=== PATIENT | female | born 1955 | race Caucasian/White ===

== ENCOUNTER 2017-04-02 18:12 | Emergency (ER) | payer OTHER ==
[~2017-04-02] VITALS: Ht 175.3 cm; Wt 68.0 kg
[~2017-04-02 18:12] MED LIST: CALTRATE 600 +1 TAB PO; CYMBALTA30 MG PO; ENABLEX15 MG PO; FIBER CHOICE1 CTB PO; FOLIC ACID800 MCG PO; INSULIN REGULAR SC; MIRALAX(PO17 GM/1 PA PO; Novolog100 U/ML SC; ONE DAILY1 TAB PO; OXYBUTYNIN CHLO10 MG PO; SYNTHROID 0.0.075 MG PO; TRAMADOL50 M1 PO; [UNRECOGNIZED DRUG - OTHER] SC
--- NOTE | 2017-04-02 18:29 | Emergency Room Report ---
History of Present Illness Time Seen by [id number] Presenting Problem in Triage Pt arrived:Wheelchair Presenting Problem:C/O LOWER L SIDED BACK PAIN THAT DESCRIBES DISCOMFORT. PT REPORTS WITH MOVEMENT PAIN WORSENS AND "FEELS LIKE A PINCH". 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 N Clinical Suspician of Infection? N Mental Status: 1 - Regular (Normal Baseline) Sepsis Risk:Low Sepsis Risk Have you (or family members/close friends) recently traveled outside the [place]? N If Yes, where/when: Have you had exposure to infectious disease within the past month? N TB? Other? Specify: Comment The patient claims of low back pain. It is in the LEFT lower back around the sacroiliac joint. Present for 2 days, starting is an ache but becoming more severe last night. She had trouble sleeping all night. She spent most of today in a recliner. Her pain was not so bad in the recliner but when she tried to get up and move the pain became severe making her feel like she was going to pass out. She says when she gets in a certain position with her back the pain becomes much more severe and feels like a severe "pinch". She took a couple of doses of Tylenol No. 3 given to her by her significant other today that did not seem to help much. She vomited on the way here, he thought it was related to the codeine. She has no numbness of the lower extremities, no bowel or bladder symptoms,, no abdominal pain. She has a prior history of the same type of low back pain on the RIGHT side for the past couple of years. She had an MRI which showed "some inflammation". She was treated with oral steroids, epidural steroid injections, none of which seemed to help. She says this is the same type of pain, just on the opposite side. She has been seen by Dr. Smith, orthopedics, couple of years ago, who sent her to pain management. The pain management physician performed the epidural injections , but she stopped these because they were not helping. The patient is diabetic. Blood sugar at 1:30 PM today was 190. She has used her usual diabetes regimen today. ALLERGIES Coded Allergies: Penicillins (Intermediate, I-HIVES 01/21/16) Home Medications Reported Medications Levothyroxine Sodium (Synthroid 0.075MG) 0.075 MG PO DAILY Oxybutynin Chloride (Oxybutynin Chloride ER) 10 MG PO DAILY INSULIN ASPART (Novolog) (Unknown Dose) SC PUMP POLYETHYLENE GLYCOL (Miralax) 17 GM PO DAILY PRN PRN CONSTIPATION DULOXETINE HCL (Cymbalta 30MG) 30 MG PO DAILY CALCIUM CARBONATE/VITAMIN D3 (Caltrate 600 + D Tablet) 1 TAB PO MULTIVITAMIN (One Daily) 1 TAB PO Folic Acid 800 MCG PO (Aly Antonio MD) History Medical History General CAD? No Angina: No HI: No Hypertension? No Hyperlipidemia? No CHF? No DVT? No PE? No COPD? No Asthma? No Anemia? No GERD? No Gastric ulcers? No GI Bleed? No Hernia? No Thyroid Problems? Yes Hypothyroidism? Yes CVA? No Seizures? No Diabetes? Yes Insulin Dependent: Yes Insulin Pump: Yes Home FSBS? Yes Renal Insuffiency? Yes End Stage Renal Disease? No UTI? No Stones? No BPH? No GB Disease: No Nephritic Syndrome? No Asplenia? No Hepatitis? No Sickle Cell Disease? No Arthritis? No Migraines? No Cataracts? No Glaucoma? No MRSA? No HIV? No TB? No Anxiety? No Depression? No Cancer? No More? 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 Findings of prominent facet hypertrophy at L4-5, but only borderline stenosis. Mild facet hypertrophy at L5-S1. No significant disc pathology. (Aly Antonio MD) Social History Drugs none (Candido Awan MD) Review of Systems All Other Systems Reviewed and Negative Constitutional denies fever Respiratory denies cough, denies shortness of breath Cardiovascular denies chest pain Gastrointestinal denies abdominal pain, nausea, vomiting Genitourinary denies: dysuria, frequency, hematuria. Musculoskeletal back pain Psychiatric/Neurological denies numbness, denies weakness (Aly Antonio MD) Skin denies rash (Lv ROY,Candido Espino) Physical Exam Vital Signs Vital Signs Date Time Temp Pulse Resp B/P Pulse O2 O2 Flow FiO2 Ox Delivery Rate 04/02 2105 98.2 90 20 140/79 97 04/02 2030 85 20 135/84 97 04/02 1943 86 20 142/80 98 04/02 1920 20 04/02 1920 20 04/02 1904 87 18 147/89 98 04/02 1815 98.2 89 18 153/92 100 General Appearance mild distress, appears uncomfortable Eye Exam - bilateral eye normal exam, bilateral eye PERRL, bilateral eye EOMI Ear, Nose, Throat hearing grossly normal, normal ENT inspection Neck normal inspection, non-tender, supple, full range of motion Respiratory Status Yes: trachea midline, chest symmetrical, non tender chest. No: respiratory distress. Lung Sounds bilateral: normal breath sounds, lungs clear. Cardiovascular normal exam, regular rate/rhythm, no peripheral edema, no gallop, no JVD, no murmur, no rub, normal peripheral pulses Peripheral Pulses Pulses normal Yes Gastrointestinal normal bowel sounds, normal exam, non tender, soft, no organomegaly, no pulsatile mass Back normal inspection, no CVA tenderness, no vertebral tenderness Extremities non-tender, normal range of motion, normal inspection Neurologic alert, normal exam, no motor/sensory deficits, oriented x 3 Mental status normal mood/affect Skin intact, normal color, warm/dry (Aly Antonio MD) Medical Decision Making LABS/Meds/Orders Pt receiving controlled substance in ED? Yes Remi was queried for this patient? No Reason not queried - unable to access Results/Orders Laboratory Tests 04/02/172034: Hepatitis A Ab Total Cancelled, Hep Bs Antigen Cancelled, Hep Bs Antibody Cancelled, Hep B Core Total Ab Cancelled, Hepatitis C Antibody Cancelled 04/02/171920: Urine Color YELLOW, Urine Appearance SL CLOUDY, Urine pH 8.0, Ur Specific [place] 1.010, Urine Protein NEGATIVE, Urine Ketones 2+ H, Urine Blood NEGATIVE , Urine Nitrate NEGATIVE, Urine Bilirubin NEGATIVE, Urine Urobilinogen 0.2, Ur Leukocyte Esterase NEGATIVE, Urine WBC OCC, Amorphous Sediment 3+, Urine Glucose 1+ H 04/02/171854: Sodium 134 L, Potassium 4.5, Chloride 100, Carbon Dioxide 27, BUN 20 H, Creatinine 1.2 H, Estimated Creat Clear 54, Estimated GFR (MDRD) 46 L, Glucose 243 H, Calcium 9.8, Total Bilirubin 0.6, AST 377 *H, ALT 266 H, Alkaline Phosphatase 162 H, Total Protein 7.0, Albumin 3.9, Globulin 3.1, Albumin/ Globulin Ratio 1.3, WBC 8.4, RBC 4.30, Hgb 12.7, Hct 38.8, MCV 90.3, RDW 12.7, Plt Count 243, MPV 6.9 L, Gran % 76.1, Gran # 6.4, Lymphocytes % 16.6, Monocytes % 5.8, Eosinophils % 1.1, Basophils % 0.4, Lymphocytes # 1.4, Monocytes # 0.5, Eosinophils # 0.1, Basophils # 0.0, PUBS MCHC 32.7, MCH 29.5, Hepatitis A IgM Ab Pending, Hep Bs Antigen Pending, Hep B Core IgM Ab Pending, Hepatitis C Antibody Pending Current Medication Orders Sig/Enmanuel Start time Last Medication Dose Route Stop Time Status Admin Promethazine HCl 0 .STK-MED ONE 04/02 1948 DC .ROUTE Sodium Chloride 25 ML .STK-MED ONE 04/02 1947 DC IV Promethazine HCl 6.25 MG ONCE ONE 04/02 1945 DC 04/02 IV 04/02 1946 1950 Sodium Chloride 25 ML ONCE ONE 04/02 1945 DC 04/02 IV 04/02 Ketorolac 0 .STK-MED ONE 04/02 1918 DC Tromethamine .ROUTE Morphine Sulfate 0 .STK-MED ONE 04/02 1917 DC .ROUTE Ondansetron HCl 0 .STK-MED ONE 04/02 1859 DC .ROUTE Ketorolac 30 MG ONCE ONE 04/02 1845 DC 04/02 Tromethamine IV 04/02 1846 192 Morphine Sulfate 4 MG ONCE ONE 04/02 1845 DC 04/02 IV 04/02 184 192 Ondansetron HCl 4 MG ONCE ONE 04/02 184 DC 04/02 IV 04/02 184 1900 Sodium Chloride 10 ML PRN PRN 04/02 1845 AC IV 04/03 1842 Orders Procedure Date/time Status DIET-NOTHING BY MOUTH 04/[address] ABD/PELVIS REQ 04/02 2011 Complete CBC WITH AUTO DIFF 04/02 1928 Complete CHEM 12 PROFILE 04/02 1928 Complete HEPATITIS B PROFILE 04/02 185 Active IV SALINE LOCK 04/02 1843 Active URINALYSIS/COMPLETE 04/02 1843 Complete XRAY/CT/US XRAY/CT/US XRAY L-spine Comment Interpreted by Aly Antonio MD. Negative for fracture, dislocation, or subluxation. Also, no suspicious calcifications seen along the courses of the ureters to suggest ureterolithiasis. Progress - 7:40 PM: Recheck patient. Pain is improved but not resolved. She requests more medication for nausea. 8:00 PM: Reviewed labs, her enzymes elevated, this is new compared to previous labs. I spoke with the patient, she says she has not been told in the past that enzymes were elevated either. CT scan abdomen ordered. She has had prior cholecystectomy. Her nausea is improved. She just checked her blood sugar on her insulin pump and it was 260, she gave herself a corrective dose of insulin. At shift change, I have discussed the patient with Dr. Awan, who will assume care of the patient at this time. I have discussed all clinical information including history, physical and diagnostic study results. Preliminary diagnoses based on information available at this point have been recorded by me. Controlled substance administration and critical care statement are also preliminary, as of the time of handoff. (Aly Antonio MD) Departure Departure Clinical Impression Primary Impression: Low back pain Qualifiers: Chronicity: acute Back pain laterality: left Sciatica presence: without sciatica Qualified Code: M54.5 - Low back pain Secondary Impressions: Elevated liver enzymes Condition STABLE ED Critical Care Critical Care No (Aly Antonio MD) Departure Time of Disposition 2137 Disposition DC Home or Self Care(routine) Patient Instructions DI for Low Back Pain Additional Instructions fluids and see pcp for follow up Discharge Counseling Counseled pt/family regarding diagnosis, test results, medications/RX, follow up needs Prescriptions Current Visit Scripts HYDROCODONE/ACETAMINOPHEN (Jasper 5-325 Tablet) 1 TAB PO Q6HP PRN pain #12 TAB ED Critical Care Critical Care No (Candido Awan MD) at 2012 at 2141
--- OUTSIDE RECORDS SUMMARY | 2017-04-02 18:37 | External Medical Summary Rpt ---
Author Author [employer] Organization [employer] Address Unknown Phone Unavailable Purpose Continuity of Care Document - through 2016
--- OUTSIDE RECORDS SUMMARY | 2017-04-02 18:37 | External Medical Summary Rpt ---
Author Author JOHANA Whittington, [employer] Organization [employer] Address Unknown Phone Unavailable
--- OUTSIDE RECORDS SUMMARY | 2017-04-02 18:37 | External Medical Summary Rpt ---
Author Author , Organization [employer] Address Unknown Phone Unavailable Purpose Continuity of Care Document - through 2016
--- OUTSIDE RECORDS SUMMARY | 2017-04-02 18:37 | External Medical Summary Rpt ---
Author Author JOHANA Whittington, [employer] Organization [employer] Address Unknown Phone Unavailable
--- OUTSIDE RECORDS SUMMARY | 2017-04-02 18:37 | External Medical Summary Rpt ---
Demographics Preferred Language Azeri Marital Status Unknown Zoroastrianism Affiliation Unknown Race Unknown Ethnic Group Unknown Author Author , Organization [employer] Address Unknown Phone Unavailable Purpose Continuity of Care Document - through 2016 Immunization No patient found.
--- OUTSIDE RECORDS SUMMARY | 2017-04-02 18:37 | External Medical Summary Rpt ---
Demographics Preferred Language Portuguese Marital Status Unknown Sikhism Affiliation Unknown Race Unknown Ethnic Group Unknown Author Author , Organization [employer] Address Unknown Phone Unavailable Purpose Continuity of Care Document - through 2016 Immunization No patient found.
[2017-04-02 19:26] LABS: URINE BILIRUBIN - DIPSTICK NEGATIVE (NEG); URINE BLOOD NEGATIVE (NEG)
[2017-04-02 19:33] LABS: HEMOGLOBIN 12.7 g/dL (12.2-16.2); LYMPH # 1.4 K/mm3 (0.7-4.5); LYMPH % 16.6 % (10-50.0)
--- NOTE | 2017-04-02 20:01 | RADIOLOGY REPORT PS360 ---
LUMBAR SPINE 5 VIEWS COMPARISON: MRI scan lumbar spine 06/14/2016 HISTORY: Back pain TECHNIQUE: AP lateral and oblique views and spot view lumbosacral junction FINDINGS: There is mild levoscoliotic curvature between T11 and L5. All lumbar vertebrae appear intact and disc spaces are well maintained throughout. There is no pars defect. The SI joints are normal. There are minor hypertrophic facet changes at the L4-5 level. IMPRESSION: Mild levoscoliotic curvature as noted minor facet changes L4-5 which were seen on the previous MRI study
--- NOTE | 2017-04-02 21:09 | RADIOLOGY REPORT PS360 ---
CT ABD PELVIS W/O CONTRAST COMPARISON: None HISTORY: Low back pain TECHNIQUE: Multiple axial scans obtained from hemidiaphragms the pelvic floor and were performed without IV or oral contrast. Sagittal and coronal reformats were evaluated as well. FINDINGS: The lower lung malave are clear. Stomach is moderately distended with ingested food particles. The liver spleen and pancreas appear grossly normal. There has been a previous cholecystectomy. The adrenal glands are normal. The kidneys are normal in size and there are no calculi and is no obstructive uropathy of either kidney. Small bowel is normal. There is been a previous appendectomy. There is moderate stool in the cecum and ascending colon. The uterus is small but in the midline, the adnexa are unremarkable. Urinary bladder appears normal. There is no free fluid in pelvis. All lumbar vertebrae appear intact and is normal curvature and alignment and disc spaces are well maintained throughout. IMPRESSION: No definite acute abdominal or pelvic pathology identified
[2017-04-02] MEDS ORDERED: NORCO 325 MG-51 TAB PO (21:40)
[2017-04-02 22:21] VITALS: BP 140/79
[2017-04-03] MEDS ORDERED: ZOFRAN4 MG PO (20:22)
[2017-04-03] MEDS ORDERED: PHENERGAN25 M3 PO (20:22)
[2017-04-04 07:43] LABS: HBsAg Screen Negative (Negative); Hep A Ab, IgM Negative (Negative); Hep B Core Ab, IgM Negative (Negative); Hep C Virus Ab <0.1 (0.0-0.9)
== END 2017-04-02 23:38 | disposition home or self-care (01) ==
LOC: ER 18:12
PROVIDERS: Emergency Medicine
DX: M54.5 Low back pain (principal); R94.5 Abnormal results of liver function studies; E11.65 Type 2 diabetes mellitus with hyperglycemia; Z79.4 Long term (current) use of insulin; Z96.41 Presence of insulin pump (external) (internal)
CPT/HCPCS: J2405

== ENCOUNTER 2017-04-03 19:13 | Emergency (ER) | payer OTHER ==
[~2017-04-03] VITALS: Ht 175.3 cm; Wt 68.0 kg
[~2017-04-03 19:13] MED LIST changes: +NORCO 325 MG-51 TAB PO
--- OUTSIDE RECORDS SUMMARY | 2017-04-03 19:21 | External Medical Summary Rpt ---
Author Author , Organization [employer] Address Unknown Phone Unavailable Purpose Continuity of Care Document - through 2016 Problems Code Diagnosis DOS Provider Status M54.5 LOW BACK PAIN R74.8 ABNORMAL LEVELS OF OTHER SERUM ENZYMES
--- OUTSIDE RECORDS SUMMARY | 2017-04-03 19:21 | External Medical Summary Rpt ---
Demographics Preferred Language Chinese Marital Status Unknown Latter Day Affiliation Unknown Race Unknown Ethnic Group Unknown Author Author , Organization [employer] Address Unknown Phone Unavailable Purpose Continuity of Care Document - through 2016 Immunization No patient found.
--- OUTSIDE RECORDS SUMMARY | 2017-04-03 19:21 | External Medical Summary Rpt ---
Demographics Preferred Language Sami Marital Status Unknown Yazidi Affiliation Unknown Race Unknown Ethnic Group Unknown Author Author , Organization [employer] Address Unknown Phone Unavailable Purpose Continuity of Care Document - through 2016 Immunization No patient found.
--- NOTE | 2017-04-03 19:43 | Emergency Room Report ---
History of Present Illness Time Seen by 1918 Presenting Problem in Triage Pt arrived:Wheelchair Presenting Problem:PT C/O LOWER BACK PAIN X 2 DAYS. PT WAS SEEN HERE AT [facility] ER YESTERDAY, RECEIVED WORK UP AND WAS TOLD TO F/U WITH DR BELL. PT RPTS SHE'S UNABLE TO SEE DR BELL BECAUSE "HE DOESN'T SEE PEOPLE FOR BACKS." PT RPTS [facility] F [facility]. PT STS "I'M NOT GOING TO MAKE IT UNTIL MONDAY. AND I'M TYPE 1 DIABETIC AND I CAN'T EAT BECAUSE I'M SO NAUSEOUS." PT RPTS SHE NO LONGER SEES THE PAIN CLINIC BECAUSE "IT WASN'T DOING ME ANY GOOD , THE STEROIDS THEY WERE GIVING ME WEREN'T HELPING." PT C/O LEFT LOWER BACK PAIN, DESCRIBED "EXTREME RENNY HORSE THAT WON'T GO AWAY." PT RPTS NO NEW INJURY TO HER BACK. PT RPTS SHE DID FILL THE SCRIPT THAT SHE WAS SENT HOME WITH FROM THE ER YESTERDAY. PT RPTS SHE USED TO SEE THE PAIN CLINIC FOR RIGHT SIDED BACK PAIN X 2 YEARS. 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 N Clinical Suspician of Infection? N Mental Status: 1 - Regular (Normal Baseline) Sepsis Risk:Possible Sepsis Risk Have you (or family members/close friends) recently traveled outside the [place]? N If Yes, where/when: Have you had exposure to infectious disease within the past month? N TB? Other? Specify: Source patient, RN notes reviewed, family, RN/MD Exam Limitations no limitations Comment This is a 61-year-old lady arriving to the emergency together with her spouse complaining with LEFT lower back pain, radiating down the LEFT lower extremity, for the past 2 days. Patient describes her pain the LEFT SI joint, affecting her appetite and sleep pattern. She was seen in the emergency room last night, 04/02/17, and discharged home on Rarden. Patient has been unable to take the pain medications, due to severe nausea (still has that narcotics at home). She has seen Dr. Smith in [place] in the past who has refer her to pain management. Pain management has given her epidural injections, but patient stopped attending the pain clinic, as she didn't feel any better. She is a diabetic, has an insulin pump. She currently has no PCP, wants to start seeing Dr. Srinivas Awan. She was discharged from the emergency room yesterday, with instructions to follow-up with Dr. Johnson, but when she called today she was advised that Dr. Johnson does not see back pains. The patient has scheduled herself today appointment with [facility], and her appointment is for Monday. ALLERGIES Coded Allergies: Penicillins (Intermediate, I-HIVES 01/21/16) Home Medications Active Scripts HYDROCODONE/ACETAMINOPHEN (Rarden 5-325 Tablet) 1 TAB PO Q6HP PRN pain #12 TAB Prov: 04/02/17 Reported Medications Levothyroxine Sodium (Synthroid 0.075MG) 0.075 MG PO DAILY Oxybutynin Chloride (Oxybutynin Chloride ER) 10 MG PO DAILY INSULIN ASPART (Novolog) (Unknown Dose) SC PUMP POLYETHYLENE GLYCOL (Miralax) 17 GM PO DAILY PRN PRN CONSTIPATION DULOXETINE HCL (Cymbalta 30MG) 30 MG PO DAILY CALCIUM CARBONATE/VITAMIN D3 (Caltrate 600 + D Tablet) 1 TAB PO MULTIVITAMIN (One Daily) 1 TAB PO Folic Acid 800 MCG PO History Medical History General CAD? No Angina: No NE: No Hypertension? No Hyperlipidemia? No CHF? No DVT? No PE? No COPD? No Asthma? No Anemia? No GERD? No Gastric ulcers? No GI Bleed? No Hernia? No Thyroid Problems? Yes Hypothyroidism? Yes CVA? No Seizures? No Diabetes? Yes Insulin Dependent: Yes Insulin Pump: Yes Home FSBS? Yes Renal Insuffiency? Yes End Stage Renal Disease? No UTI? No Stones? No BPH? No GB Disease: Yes Nephritic Syndrome? No Asplenia? No Hepatitis? No Sickle Cell Disease? No Arthritis? No Migraines? No Cataracts? No Glaucoma? No MRSA? No HIV? No TB? No Anxiety? No Depression? No Cancer? No More? 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 Family History Family Hx Diabetes Yes Hyperlipidemia Yes Cancer Yes Social History Smoking Hx Smoker: Never Smoker Tobacco: No Packs/day N/A Alcohol Alcohol: No Review of Systems All Other Systems Reviewed and Negative Musculoskeletal back pain Physical Exam Vital Signs Vital Signs Date Time Temp Pulse Resp B/P Pulse O2 O2 Flow FiO2 Ox Delivery Rate 04/03 1946 20 04/03 1918 98.4 94 20 162/83 99 General Appearance normal appearance, WD/WN, moderate distress Neck normal inspection, non-tender, supple, full range of motion Respiratory Status Yes: trachea midline, chest symmetrical, non tender chest. No: respiratory distress. Lung Sounds bilateral: normal breath sounds, lungs clear. 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 No Results/Orders Current Medication Orders Sig/Enmanuel Start time Last Medication Dose Route Stop Time Status Admin Hydromorphone HCl 1 MG ONCE ONE 04/03 2030 AC IM 04/03 2031 Hydromorphone HCl 0 .STK-MED ONE 04/03 2019 DC .ROUTE Sodium Chloride 10 ML PRN PRN 04/03 2000 DC IV 04/04 1958 Hydromorphone HCl 1 MG ONCE ONE 04/03 1945 DC 04/03 IM 04/03 Ondansetron HCl 4 MG ONCE ONE 04/03 1945 DC 04/03 IM 04/03 Hydromorphone HCl 0 .STK-MED ONE 04/03 1943 DC .ROUTE Ondansetron HCl 0 .STK-MED ONE 04/03 1943 DC .ROUTE Albuterol/Ipratropium 0 .STK-MED ONE 04/03 1938 DC INH Departure Departure Time of Disposition 2018 Disposition DC Home or Self Care(routine) Clinical Impression Primary Impression: Back pain Qualifiers: Back pain location: low back pain Chronicity: acute Back pain laterality: left Sciatica presence: with sciatica Sciatica laterality: sciatica of left side Qualified Code: M54.42 - Lumbago with sciatica, left side Secondary Impressions: Elevated LFTs Condition STABLE Referrals Lv ROY,Leodan Espino please be at Dr Awan's office at 10:00am or 1:00pm tomorrow. Patient Instructions DI for Low Back Pain Additional Instructions Please be at Dr. Hutson's office tomorrow at 10 AM or 1 PM, for additional workup. Please premedicate yourself, 15-30 minutes prior to take the Rarden with Phenergan or Zofran, prescriptions attached. Pleasee HOLD the NORCO till seen and evalauted by Dr Awan tomorrow. Attached you will find a take home pack for Ultram, and Phenergan (to be used tonight). Discharge Counseling Counseled pt/family regarding diagnosis, test results, medications/RX, home care, follow up needs Comment Please be at Dr. Hutson's office tomorrow at 10 AM or 1 PM, for additional workup. Please premedicate yourself, 15-30 minutes prior to take the Rarden with Phenergan or Zofran, prescriptions attached. Pleasee HOLD the NORCO till seen and evalauted by Dr Awan tomorrow. Attached you will find a take home pack for Ultram, and Phenergan (to be used tonight). Prescriptions Current Visit Scripts PROMETHAZINE HCL (Phenergan 25MG Tab (Geq)) 25 MG PO Q6HP PRN N/V #28 TAB ONDANSETRON HCL (Zofran 4MG Tab) 4 MG PO Q6HP PRN NAUSEA AND VOMITING #28 TAB ED Critical Care Critical Care No
--- NOTE | 2017-04-03 19:43 | Emergency Room Report ---
History of Present Illness Time Seen by 1918 Presenting Problem in Triage Pt arrived:Wheelchair Presenting Problem:PT C/O LOWER BACK PAIN X 2 DAYS. PT WAS SEEN HERE AT [facility] ER YESTERDAY, RECEIVED WORK UP AND WAS TOLD TO F/U WITH DR BELL. PT RPTS SHE'S UNABLE TO SEE DR BELL BECAUSE "HE DOESN'T SEE PEOPLE FOR BACKS." PT RPTS [facility]. PT STS "I'M NOT GOING TO MAKE IT UNTIL MONDAY. AND I'M TYPE 1 DIABETIC AND I CAN'T EAT BECAUSE I'M SO NAUSEOUS." PT RPTS SHE NO LONGER SEES THE PAIN CLINIC BECAUSE "IT WASN'T DOING ME ANY GOOD , THE STEROIDS THEY WERE GIVING ME WEREN'T HELPING." PT C/O LEFT LOWER BACK PAIN, DESCRIBED "EXTREME RENNY HORSE THAT WON'T GO AWAY." PT RPTS NO NEW INJURY TO HER BACK. PT RPTS SHE DID FILL THE SCRIPT THAT SHE WAS SENT HOME WITH FROM THE ER YESTERDAY. PT RPTS SHE USED TO SEE THE PAIN CLINIC FOR RIGHT SIDED BACK PAIN X 2 YEARS. 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 N Clinical Suspician of Infection? N Mental Status: 1 - Regular (Normal Baseline) Sepsis Risk:Possible Sepsis Risk Have you (or family members/close friends) recently traveled outside the [place]? N If Yes, where/when: Have you had exposure to infectious disease within the past month? N TB? Other? Specify: Source patient, RN notes reviewed, family, RN/MD Exam Limitations no limitations Comment This is a 61-year-old lady arriving to the emergency together with her spouse complaining with LEFT lower back pain, radiating down the LEFT lower extremity, for the past 2 days. Patient describes her pain the LEFT SI joint, affecting her appetite and sleep pattern. She was seen in the emergency room last night, 04/02/17, and discharged home on Osage. Patient has been unable to take the pain medications, due to severe nausea (still has that narcotics at home). She has seen Dr. Smith in [place] in the past who has refer her to pain management. Pain management has given her epidural injections, but patient stopped attending the pain clinic, as she didn't feel any better. She is a diabetic, has an insulin pump. She currently has no PCP, wants to start seeing Dr. Srinivas Awan. She was discharged from the emergency room yesterday, with instructions to follow-up with Dr. Johnson, but when she called today she was advised that Dr. Johnson does not see back pains. The patient has scheduled herself today appointment with [facility], and her appointment is for Monday. ALLERGIES Coded Allergies: Penicillins (Intermediate, I-HIVES 01/21/16) Home Medications Active Scripts HYDROCODONE/ACETAMINOPHEN (Osage 5-325 Tablet) 1 TAB PO Q6HP PRN pain #12 TAB Prov: 04/02/17 Reported Medications Levothyroxine Sodium (Synthroid 0.075MG) 0.075 MG PO DAILY Oxybutynin Chloride (Oxybutynin Chloride ER) 10 MG PO DAILY INSULIN ASPART (Novolog) (Unknown Dose) SC PUMP POLYETHYLENE GLYCOL (Miralax) 17 GM PO DAILY PRN PRN CONSTIPATION DULOXETINE HCL (Cymbalta 30MG) 30 MG PO DAILY CALCIUM CARBONATE/VITAMIN D3 (Caltrate 600 + D Tablet) 1 TAB PO MULTIVITAMIN (One Daily) 1 TAB PO Folic Acid 800 MCG PO History Medical History General CAD? No Angina: No OK: No Hypertension? No Hyperlipidemia? No CHF? No DVT? No PE? No COPD? No Asthma? No Anemia? No GERD? No Gastric ulcers? No GI Bleed? No Hernia? No Thyroid Problems? Yes Hypothyroidism? Yes CVA? No Seizures? No Diabetes? Yes Insulin Dependent: Yes Insulin Pump: Yes Home FSBS? Yes Renal Insuffiency? Yes End Stage Renal Disease? No UTI? No Stones? No BPH? No GB Disease: Yes Nephritic Syndrome? No Asplenia? No Hepatitis? No Sickle Cell Disease? No Arthritis? No Migraines? No Cataracts? No Glaucoma? No MRSA? No HIV? No TB? No Anxiety? No Depression? No Cancer? No More? 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 Hx LMP menopause Family History Family Hx Diabetes Yes Hyperlipidemia Yes Cancer Yes Social History Smoking Hx Smoker: Never Smoker Tobacco: No Packs/day N/A Alcohol Alcohol: No Review of Systems All Other Systems Reviewed and Negative Musculoskeletal back pain Physical Exam Vital Signs Vital Signs Date Time Temp Pulse Resp B/P Pulse O2 O2 Flow FiO2 Ox Delivery Rate 04/03 1946 20 04/03 1918 98.4 94 20 162/83 99 General Appearance normal appearance, WD/WN, moderate distress Neck normal inspection, non-tender, supple, full range of motion Respiratory Status Yes: trachea midline, chest symmetrical, non tender chest. No: respiratory distress. Lung Sounds bilateral: normal breath sounds, lungs clear. Cardiovascular normal exam, regular rate/rhythm, no peripheral edema, no gallop, no JVD, no murmur, no rub, normal peripheral pulses Gastrointestinal normal bowel sounds, normal exam, non tender, soft, no organomegaly Back normal inspection, no CVA tenderness, no vertebral tenderness, strt leg raising(L)-ABNL, gait abnormality (antalgic) Extremities non-tender, normal range of motion, normal inspection Neurologic alert, finisher accordion II-XII nml as tested, normal exam, oriented x 3 Mental status normal mood/affect Skin intact, normal color, warm/dry Medical Decision Making LABS/Meds/Orders Pt receiving controlled substance in ED? No Results/Orders Current Medication Orders Sig/Enmanuel Start time Last Medication Dose Route Stop Time Status Admin Hydromorphone HCl 1 MG ONCE ONE 04/03 2030 AC IM 04/03 2031 Hydromorphone HCl 0 .STK-MED ONE 04/03 2019 DC .ROUTE Sodium Chloride 10 ML PRN PRN 04/03 2000 DC IV 04/04 1958 Hydromorphone HCl 1 MG ONCE ONE 04/03 1945 DC 04/03 IM 04/03 Ondansetron HCl 4 MG ONCE ONE 04/03 1945 DC 04/03 IM 04/03 Hydromorphone HCl 0 .STK-MED ONE 04/03 1943 DC .ROUTE Ondansetron HCl 0 .STK-MED ONE 04/03 1943 DC .ROUTE Albuterol/Ipratropium 0 .STK-MED ONE 04/03 1938 DC INH Departure Departure Time of Disposition 2018 Disposition DC Home or Self Care(routine) Clinical Impression Primary Impression: Back pain Qualifiers: Back pain location: low back pain Chronicity: acute Back pain laterality: left Sciatica presence: with sciatica Sciatica laterality: sciatica of left side Qualified Code: M54.42 - Lumbago with sciatica, left side Secondary Impressions: Elevated LFTs Condition STABLE Referrals Lv ROY,Leodan Espino please be at Dr Awan's office at 10:00am or 1:00pm tomorrow. Patient Instructions DI for Low Back Pain Additional Instructions Please be at Dr. Hutson's office tomorrow at 10 AM or 1 PM, for additional workup. Please premedicate yourself, 15-30 minutes prior to take the Osage with Phenergan or Zofran, prescriptions attached. Pleasee HOLD the NORCO till seen and evalauted by Dr Awan tomorrow. Attached you will find a take home pack for Ultram, and Phenergan (to be used tonight). Discharge Counseling Counseled pt/family regarding diagnosis, test results, medications/RX, home care, follow up needs Comment Please be at Dr. Hutson's office tomorrow at 10 AM or 1 PM, for additional workup. Please premedicate yourself, 15-30 minutes prior to take the Osage with Phenergan or Zofran, prescriptions attached. Pleasee HOLD the NORCO till seen and evalauted by Dr Awan tomorrow. Attached you will find a take home pack for Ultram, and Phenergan (to be used tonight). Prescriptions Current Visit Scripts PROMETHAZINE HCL (Phenergan 25MG Tab (Geq)) 25 MG PO Q6HP PRN N/V #28 TAB ONDANSETRON HCL (Zofran 4MG Tab) 4 MG PO Q6HP PRN NAUSEA AND VOMITING #28 TAB ED Critical Care Critical Care No
[2017-04-03] MEDS ORDERED: PHENERGAN25 M3 PO (20:22)
[2017-04-03] MEDS ORDERED: ZOFRAN4 MG PO (20:22)
[2017-04-03 20:44] VITALS: BP 175/94
== END 2017-04-03 20:48 | disposition home or self-care (01) ==
LOC: ER 19:13
DX: M54.42 Lumbago with sciatica, left side (principal); E10.9 Type 1 diabetes mellitus without complications; Z79.4 Long term (current) use of insulin
CPT/HCPCS: J2405

== ENCOUNTER → 2017-09-08 | Outpatient (CLI) | payer OTHER ==
[~2017-09-08] MED LIST changes: +PHENERGAN25 M3 PO; +ZOFRAN4 MG PO
--- NOTE | 2017-09-08 11:54 | RADIOLOGY REPORT PS360 ---
BONE DENSITOMETRY(HIP:LT SPINE HISTORY: POST MENOPAUSAL ORDERING PHYSICIAN: Dakotah Davis MD PATIENT AGE: 62 years COMPARISON: 08/29/2016 FINDINGS: The BMD measured at the left femoral neck is 0.758 g/cm squared with a T score of -2. This is considered Osteopenic according to the World Health Organization criteria. Fracture risk is Moderate. Treatment is advised. L1-L4 density has a T score of -0.3. The density of the hips has decreased by nearly 5% compared to the previous exam. The density of the lumbar spine has also decreased bilaterally 5% compared to the previous study. IMPRESSION: Osteopenia. Please see above for detail. Recommend follow up exam August 2019
--- NOTE | 2017-09-13 11:55 | RADIOLOGY REPORT PS360 ---
DIG MAMM-SCREEN MAYE W/CAD CAD Screening COMPARISON: Digital mammograms 08/29/2016 and 08/24/2015 INDICATION: There is a history of breast cancer patient maternal aunt diagnosed after menopause. There is been previous biopsy left breast for benign disease. TECHNIQUE: Standard CC and MLO images were obtained. R2 CAD reviewed. FINDINGS: The breasts are closed primarily of fat with minimal fiber glandular densities in the subareolar regions of each breast. There are 2 biopsy clips deep to the nipple left breast. There is no new or suspicious lesion in either breast and there are no suspicious microcalcifications. IMPRESSION: Fibrofatty parenchyma with no suspicious lesion seen recommend yearly follow-up BI-RADS CATEGORY: 2_Benign RECOMMENDED FOLLOWUP: 12M 12 MONTH FOLLOW-UP (A letter has been sent to the patient regarding results of the study.)
== END ==
LOC: RAD 09:42
DX: Z12.31 Encounter for screening mammogram for malignant neoplasm of breast (principal); Z78.0 Asymptomatic menopausal state
CPT/HCPCS: G0202